=== PATIENT | male | born 1950 | race American Indian/Alaskan Native ===

== ENCOUNTER 2018-02-02 17:40 | Inpatient (IN) | payer BC ==
[2018-02-02] MEDS ORDERED: Multivitamin (MVI) 10 ML, Thiamine 100 MG, Folic Acid 1 MG in Sodium Chloride 0.9% 1,00... IV ONE (18:07)
--- NOTE | 2018-02-02 18:20 | ED PDOC ---
Arrival/HPI - General Chief Complaint: Alcohol Ingestion Time Seen by Provider: 02/02/18 18:03 Historian: Patient, Spouse - History of Present Illness Narrative History of Present Illness (Text): 02/02/18 18:08 67 year old male, whose past medical history includes hypertension, ETOH abuse, and depression, presents to the emergency department complaining of ETOH withdrawal and generalized tremors, that began earlier today. Patient states that he has not taken ETOH in the past two days, and is experiencing associated nausea and vomiting. Of note patient reports he has experienced severe withdrawal symptoms in the past, including seizures. Patient denies fevers, headache, dizziness, chest pain, shortness of breath, dyspnea on exertion, cough, abdominal pain, diarrhea, back pain, neck pain, or any other complaint. Time/Duration: 4-6 hours Symptom Course: Unchanged Activities at Onset: Light Context: Home Past Medical History - Provider Review Nursing Documentation Reviewed: Yes - Infectious Disease Hx of Infectious Diseases: None - Cardiac Hx Cardiac Disorders: Yes Hx Hypertension: Yes - Pulmonary Hx Respiratory Disorders: No - Neurological Hx Neurological Disorder: Yes Hx Seizures: Yes Other/Comment: ALCOHOL WITHDRAWAL - HEENT Hx HEENT Disorder: Yes - Renal Hx Renal Disorder: No - Endocrine/Metabolic Hx Endocrine Disorders: No - Hematological/Oncological Hx Blood Disorders: Yes Hx Cancer: Yes (Prostate) - Integumentary Hx Dermatological Disorder: Yes Other/Comment: LIPOMA SCALP LEFT SIDE - Musculoskeletal/Rheumatological Hx Musculoskeletal Disorders: Yes Hx Falls: Yes - Gastrointestinal Hx Gastrointestinal Disorders: Yes Other/Comment: ALCOHOL ABUSE - Genitourinary/Gynecological Hx Genitourinary Disorders: Yes Hx Prostate Cancer: Yes - Psychiatric Hx Psychophysiologic Disorder: Yes Hx Depression: Yes Hx Substance Use: No - Surgical History Other/Comment: prostate bx prostate seed implant - Anesthesia Hx Anesthesia: Yes Hx Anesthesia Reactions: No Family/Social History - Physician Review Nursing Documentation Reviewed: Yes Family/Social History: No Known Family HX Smoking Status: Never Smoked Hx Alcohol Use: Yes Hx Substance Use: No Allergies/Home Meds Allergies/Adverse Reactions: Allergies No Known Allergies Allergy (Verified 02/02/18 17:42) Review of Systems - Physician Review All systems were reviewed & negative as marked: Yes - Review of Systems Constitutional: Other (generalized tremors). absent: Fevers Eyes: absent: Vision Changes Respiratory: absent: SOB, Cough Cardiovascular: absent: Chest Pain Gastrointestinal: Nausea, Vomiting. absent: Diarrhea Genitourinary Male: absent: Dysuria Musculoskeletal: absent: Back Pain, Neck Pain Neurological: absent: Headache, Dizziness Physical Exam - Physical Exam Narrative Physical Exam (Text): 02/02/18 18:08 Gen: VS reviewed, alert, well developed, well nourished, nontoxic, mild distress, mild to moderate tremors. ENT: normal pharynx. Eye: EOMI, PERRL. Neck: no JVD, supple, no adenopathy. CV: Irregulary irregular rhythm, no rubs, no murmur, no gallops, S1, S2, pulses equal and strong. Pulm: no distress, clear to auscultation, no wheeze, no rhonchi, breath sounds equal, no rales. Abd: soft, nontender, no guarding, no rebound, no rigidity, normal bowel sounds. Ext: no edema. Skin: good color, no rash, no cyanosis. Psych: responds appropriately to questions, normal affect. Neuro: oriented x 3, CN2-12 intact grossly, motor intact, sensation intact. Vital Signs Reviewed: Yes Vital Signs Temp Pulse Resp BP Pulse Ox 02/02/18 17:44 98.1 F 133 H 18 194/123 H 98 Temperature: Afebrile Blood Pressure: Hypertensive Pulse: Tachycardic Respiratory Rate: Normal Appearance: Positive for: Well-Appearing, Non-Toxic, Comfortable Pain Distress: None Mental Status: Positive for: Alert and Oriented X 3 Medical Decision Making ED Course and Treatment: 02/02/18 18:08 Impression: 67 year old male who presents to the emergency department with complaints of ETOH withdrawal and generalized tremors. Plan: -- EKG -- Labs -- Ativan -- Cardiac Enzymes -- IV Fluids -- Reassess and disposition Prior Visits: Notes and results from previous visits were reviewed. Progress Notes: 02/02/18 19:30 CIWA score at initial examination = approx 9 02/02/18 20:48 admit accepted to hospitalist service, dr. dalton, patient to be admitted for alcohol withdrawal and low magnesium. - Lab Interpretations I have reviewed the lab results: Yes - EKG Interpretation EKG Interpretation (Text): 02/02/18 18:35 1819: sinus tach at 116 bpm, nml qrs, nml axis, lhv, nonspecific lateral t wave abn Interpreted by ED Physician: Yes Type: 12 lead EKG - Medication Orders Current Medication Orders: Multivitamins/Vitamin C 10 ml/Thiamine HCl 100 mg/ Folic Acid 1 mg/ Sodium Chloride 1,011.2 mls @ 150 mls/hr IV .[id number] ONE Stop: 02/03/18 00:51 Discontinued Medications Lorazepam (Ativan) 2 mg IVP ONCE ONE; Protocol Stop: 02/02/18 18:09 - Scribe Statement The provider has reviewed the documentation as recorded by the Maggie Zafar Provider Scribe Attestation: All medical record entries made by the Scribe were at my direction and personally dictated by me. I have reviewed the chart and agree that the record accurately reflects my personal performance of the history, physical exam, medical decision making, and the department course for this patient. I have also personally directed, reviewed, and agree with the discharge instructions and disposition. Disposition/Present on Arrival - Present on Arrival Any Indicators Present on Arrival: No History of DVT/PE: No History of Uncontrolled Diabetes: No Urinary Catheter: No History of Decub. Ulcer: No History Surgical Site Infection Following: None - Disposition Have Diagnosis and Disposition been Completed?: Yes Diagnosis: Alcohol withdrawal Disposition: HOSPITALIZED Disposition Time: 20:19 Patient Plan: Admission Patient Problems: Current Active Problems Problem Status Onset Alcohol withdrawal Acute Condition: STABLE Referrals: Toñito Alarcon MD [Primary Care Provider] - Follow up with primary Forms: [employer] (Czech)
[2018-02-02 19:12] LABS: BASO # 0.01 K/mm3 (0.0-2.0); BASO % 0.1 % (0.0-3.0); GRAN # 6.58 (1.4-6.5); GRAN % 84.3 % (50.0-68.0); HEMOGLOBIN 11.3 g/dL (14.0-18.0); LYMPH # 0.3 (1.2-3.4); LYMPH % 3.6 % (22.0-35.0); MEAN CELL VOLUME 101.9 fl (80.0-105.0); MEAN CORPUSCULAR HEMOGLOBIN 35.1 pg (25.0-35.0); MEAN CORPUSCULAR HGB CONC 34.5 g/dl (31.0-37.0); MEAN PLATELET VOLUME 11.2 fl (7.0-11.0); MONO # 0.9 (0.1-0.6); PLATELET COUNT 237 10^3/uL (120.0-450.0); RBC 3.22 10^6/uL (3.5-6.1); RED CELL DISTRIBUTION WIDTH 15.2 % (11.5-14.5); WHITE BLOOD COUNT 7.8 10^3/uL (4.5-11.0)
[2018-02-02 19:38] LABS: ANISOCYTOSIS 1+; HYPOCHROMIA 1+; LYMPHOCYTE 6 % (22.0-35.0); MONOCYTE 9 % (1.0-6.0); NEUTROPHIL 88 % (50.0-70.0); PLATELET ESTIMATE NORMAL (NORMAL)
[2018-02-02 20:32] LABS: BLOOD UREA NITROGEN 11 mg/dL (7-21); GFR NON-AFRICAN AMERICAN > 60
[2018-02-02 20:33] LABS: ALB/GLOB RATIO 1.3 (1.1-1.8); ALBUMIN 4.8 g/dL (3.0-4.8); ALT/SGPT 46 U/L (7-56); AST/SGOT 166 U/L (17-59); CALCIUM 9.6 mg/dL (8.4-10.5)
[2018-02-02 20:44] LABS: TROPONIN I 0.02 ng/mL
[2018-02-02] MEDS ORDERED: Magnesium Sulfate 2 gm/50 ml 2 GM/50 ML BAG IVPB ONE (20:46)
--- NOTE | 2018-02-02 21:59 | CP.PCM.HP ---
<Brendan Stephenson - Last Filed: 02/03/18 00:15> History of Present Illness - History of Present Illness History of Present Illness: Brendan Stephenson PGY1 History and Physical For Dr Dotson. Pt is a 67 yo male with a PMH of HTN, ETOH abuse/withdrawal, depression, prostate cancer s/p radiation treatments who presents to the ED complaining of ETOH withdrawal and generalized tremors, that began earlier today. Pt states he typically drinks about 1/2 pint of vodka each day. Pt last drank alco hol 2 days ago. Pt reports "a little vomiting" yesterday with a small amount of pink which his state may have been something he ate. Pt is oriented to self, place, but states the year is 1917. Patient reports he has experienced severe withdrawal symptoms in the past, including seizures. Pt denies fevers, headache, dizziness, chest pain, shortness of breath, dyspnea on exertion, cough, abdominal pain, diarrhea. A 12 point ROS was obtained and added to the HPI where appropriate. PMH: HTN, ETOH abuse/withdrawal, depression, prostate cancer s/p radiation treatments, tetanus PSH: lipoma removal from forehead FH: Mother 92 living, HTN, DM. Father 89 prostate cancer, CHF SH: Alcohol 1/2 pint vodka per day, Tobacco former smoker, quit in , Denies illicit drugs Home meds: carvedilol Allergies: denies Present on Admission - Present on Admission Any Indicators Present on Admission: No Review of Systems - Review of Systems Review of Systems: a 12 point ROS was obtained and added to the HPI Past Patient History - Infectious Disease Hx of Infectious Diseases: None - Past Medical History & Family History Past Medical History?: Yes - Past Social History Smoking Status: Never Smoked - CARDIAC Hx Cardiac Disorders: Yes Hx Hypertension: Yes - PULMONARY Hx Respiratory Disorders: No - NEUROLOGICAL Hx Neurological Disorder: Yes Hx Seizures: Yes Other/Comment: ALCOHOL WITHDRAWAL - HEENT Hx HEENT Problems: Yes - RENAL Hx Chronic Kidney Disease: No - ENDOCRINE/METABOLIC Hx Endocrine Disorders: No - HEMATOLOGICAL/ONCOLOGICAL Hx Blood Disorders: Yes Hx Cancer: Yes (Prostate) - INTEGUMENTARY Hx Dermatological Problems: Yes Other/Comment: LIPOMA SCALP LEFT SIDE - MUSCULOSKELETAL/RHEUMATOLOGICAL Hx Musculoskeletal Disorders: Yes Hx Falls: Yes - GASTROINTESTINAL Hx Gastrointestinal Disorders: Yes Other/Comment: ALCOHOL ABUSE - GENITOURINARY/GYNECOLOGICAL Hx Genitourinary Disorders: Yes Hx Prostate Cancer: Yes - PSYCHIATRIC Hx Psychophysiologic Disorder: Yes Hx Depression: Yes Hx Substance Use: No - SURGICAL HISTORY Other/Comment: prostate bx prostate seed implant - ANESTHESIA Hx Anesthesia: Yes Hx Anesthesia Reactions: No Meds Allergies/Adverse Reactions: Allergies Allergy/AdvReac Type Severity Reaction Status Date / Time No Known Allergies Allergy Verified 02/02/18 17:42 Physical Exam - Constitutional Appears: Non-toxic, No Acute Distress - Head Exam Head Exam: ATRAUMATIC, NORMAL INSPECTION, NORMOCEPHALIC - Eye Exam Eye Exam: EOMI Pupil Exam: NORMAL ACCOMODATION - ENT Exam ENT Exam: Mucous Membranes Moist - Neck Exam Neck exam: Positive for: Full Rom - Respiratory Exam Respiratory Exam: Clear to Auscultation Bilateral, NORMAL BREATHING PATTERN. absent: Wheezes, Respiratory Distress - Cardiovascular Exam Cardiovascular Exam: RRR, +S1, +S2. absent: Diastolic murmur, Systolic Murmur - GI/Abdominal Exam GI & Abdominal Exam: Normal Bowel Sounds, Soft. absent: Tenderness - Extremities Exam Extremities exam: Positive for: full ROM, pedal pulses present. Negative for: calf tenderness, pedal edema - Neurological Exam Neurological exam: CN II-XII Intact - Psychiatric Exam Psychiatric exam: Normal Affect, Normal Mood - Skin Skin Exam: Dry, Intact, Warm Results - Vital Signs Recent Vital Signs: Last Vital Signs Temp 98.2 F 02/02/18 21:33 Pulse 106 H 02/02/18 21:33 Resp 19 02/02/18 21:33 BP 155/108 H 02/02/18 21:33 Pulse Ox 100 02/02/18 21:33 - Labs Result Diagrams: 02/02/18 18:18 02/02/18 20:06 Labs: Laboratory Results - last 24 hr 02/02/18 02/02/18 02/02/18 18:18 18:18 20:06 WBC 7.8 RBC 3.22 L Hgb 11.3 L Hct 32.8 L MCV 101.9 MCH 35.1 H MCHC 34.5 RDW 15.2 H Plt Count 237 MPV 11.2 H Gran % 84.3 H Lymph % (Auto) 3.6 L [place] % (Auto) 12.0 H Eos % (Auto) 0.0 L Baso % (Auto) 0.1 Gran # 6.58 H Lymph # (Auto) 0.3 L [place] # (Auto) 0.9 H Eos # (Auto) 0.0 Baso # (Auto) 0.01 Neutrophils % (Manual) 88 H Lymphocytes % (Manual) 6 L Monocytes % (Manual) 9 H Platelet Evaluation Normal Hypochromasia 1+ Anisocytosis (manual) 1+ Macrocytosis (manual) 1+ Sodium 138 Potassium 4.2 Chloride 97 L Carbon Dioxide 22 Anion Gap 24 H BUN 11 Creatinine 0.7 L Est GFR ( Amer) > 60 Est GFR (Non-Af Amer) > 60 Random Glucose 94 Calcium 9.6 Magnesium 1.1 L Total Bilirubin 0.8 AST 166 H ALT 46 Alkaline Phosphatase 95 Troponin I 0.02 D Total Protein 8.6 H Albumin 4.8 Globulin 3.8 Albumin/Globulin Ratio 1.3 Alcohol, Quantitative < 10 Assessment & Plan - Assessment and Plan (Free Text) Assessment: Pt is a 67 yo male with a PMH of HTN, ETOH abuse/withdrawal, depression, prostate cancer s/p radiation treatments who presents to the ED complaining of ETOH withdrawal and generalized tremors, that began earlier today. Pt states he typically drinks about 1/2 pint of vodka each day. Plan: ETOH abuse/ withdrawal - pt has had seizure like activity from withdrawal in the past - CIWA protocol - fall and seizure precautions - Ativan given in the ED - pt given Banana bag in ED - monitor for signs of withdrawal/ seizure - continue to monitor electrolytes HypoMg - repeat Mg level in the morning - continue to replete PRN HTN - hydralazine PRN Ppx - SCD - protonix Pt seen, examined, assessment and plan discussed with Dr Mauri Stephenson PGY1, Internal Medicine Resident - Date & Time Date: 02/02/18 Time: 22:02 <Jose Miguel Dotson - Last Filed: 02/03/18 02:32> Results - Vital Signs Recent Vital Signs: Last Vital Signs Temp 97.8 F 02/03/18 00:25 Pulse 94 H 02/03/18 00:27 Resp 16 02/03/18 00:25 BP 127/86 02/03/18 00:25 Pulse Ox 99 02/03/18 00:25 - Labs Result Diagrams: 02/02/18 18:18 02/02/18 20:06 Labs: Laboratory Results - last 24 hr 02/02/18 02/02/18 02/02/18 18:18 18:18 20:06 WBC 7.8 RBC 3.22 L Hgb 11.3 L Hct 32.8 L MCV 101.9 MCH 35.1 H MCHC 34.5 RDW 15.2 H Plt Count 237 MPV 11.2 H Gran % 84.3 H Lymph % (Auto) 3.6 L [place] % (Auto) 12.0 H Eos % (Auto) 0.0 L Baso % (Auto) 0.1 Gran # 6.58 H Lymph # (Auto) 0.3 L [place] # (Auto) 0.9 H Eos # (Auto) 0.0 Baso # (Auto) 0.01 Neutrophils % (Manual) 88 H Lymphocytes % (Manual) 6 L Monocytes % (Manual) 9 H Platelet Evaluation Normal Hypochromasia 1+ Anisocytosis (manual) 1+ Macrocytosis (manual) 1+ Sodium 138 Potassium 4.2 Chloride 97 L Carbon Dioxide 22 Anion Gap 24 H BUN 11 Creatinine 0.7 L Est GFR ( Amer) > 60 Est GFR (Non-Af Amer) > 60 Random Glucose 94 Calcium 9.6 Magnesium 1.1 L Total Bilirubin 0.8 AST 166 H ALT 46 Alkaline Phosphatase 95 Troponin I 0.02 D Total Protein 8.6 H Albumin 4.8 Globulin 3.8 Albumin/Globulin Ratio 1.3 Alcohol, Quantitative < 10 Attending/Attestation - Attestation I have personally seen and examined this patient.: Yes I have fully participated in the care of the patient.: Yes I have reviewed all pertinent clinical information: Yes Notes (Text): 02/03/18 02:24 67 y/o M with PMH of prostate CA s/p radiotherapy, EtOH abuse, presented with withdrawal symptoms. Last drink was 2days ago. Denies any chest pain, SOB. Pt currently has NB/NB vomiting. Denies any fever or chills. PE positive for tremors and tachycardia EtOH abuse EtOH withdrawal HTN Hypomagnesemia Initiate CIWA protocol fall and seizure precautions Start pt on banana bag Monitor and replace electrolytes
[2018-02-03 01:00] VITALS: BMI 20.9
[2018-02-03] MEDS: Pantoprazole 40 mg EC Tab PO SCH (05:54)
[2018-02-03 07:07] LABS: BASO # 0.01 K/mm3 (0.0-2.0); BASO % 0.2 % (0.0-3.0); EOS % 0.7 % (1.5-5.0); GRAN # 3.67 (1.4-6.5); GRAN % 64.6 % (50.0-68.0); HEMOGLOBIN 10.2 g/dL (14.0-18.0); LYMPH % 17.4 % (22.0-35.0); MEAN CORPUSCULAR HEMOGLOBIN 34.5 pg (25.0-35.0); MEAN CORPUSCULAR HGB CONC 34.1 g/dl (31.0-37.0); MONO % 17.1 % (1.0-6.0); RBC 2.96 10^6/uL (3.5-6.1); WHITE BLOOD COUNT 5.7 10^3/uL (4.5-11.0)
[2018-02-03] MEDS ORDERED: Multivitamin (MVI) 10 ML, Thiamine 100 MG, Folic Acid 1 MG in Sodium Chloride 0.9% 1,00... IV ONE (07:25)
[2018-02-03 07:33] LABS: ALB/GLOB RATIO 1.3 (1.1-1.8); ALBUMIN 4.7 g/dL (3.0-4.8); ALT/SGPT 43 U/L (7-56); AST/SGOT 151 U/L (17-59); BLOOD UREA NITROGEN 9 mg/dL (7-21); CALCIUM 9.1 mg/dL (8.4-10.5); GFR NON-AFRICAN AMERICAN > 60
--- NOTE | 2018-02-03 10:11 | CARD ---
APPROVED REPORT Date of service: 02/02/2018 EKG Measurement Heart [id number] <Conclusion> Sinus tachycardia with premature atrial complexes LVH ST-T Changes.
[2018-02-03] MEDS ORDERED: Potassium Chloride 20 mEq ER Tab PO STA (11:55)
[2018-02-03] MEDS ORDERED: Magnesium Sulfate 2 gm/50 ml 2 GM/50 ML BAG IVPB ONE (11:55)
[2018-02-04] MEDS: Pantoprazole 40 mg EC Tab PO SCH (05:58)
[2018-02-04 08:02] LABS: BASO # 0.01 K/mm3 (0.0-2.0); BASO % 0.2 % (0.0-3.0); EOS # 0.1 (0.0-0.7); EOS % 1.8 % (1.5-5.0); GRAN # 3.89 (1.4-6.5); GRAN % 68.4 % (50.0-68.0); HEMOGLOBIN 10.1 g/dL (14.0-18.0); LYMPH # 0.8 (1.2-3.4); LYMPH % 13.9 % (22.0-35.0); MEAN CELL VOLUME 101.3 fl (80.0-105.0); MEAN CORPUSCULAR HGB CONC 33.6 g/dl (31.0-37.0); MEAN PLATELET VOLUME 10.2 fl (7.0-11.0); MONO # 0.9 (0.1-0.6); MONO % 15.7 % (1.0-6.0); RBC 2.97 10^6/uL (3.5-6.1); WHITE BLOOD COUNT 5.7 10^3/uL (4.5-11.0)
[2018-02-04 08:17] LABS: ALB/GLOB RATIO 1.2 (1.1-1.8); ALT/SGPT 40 U/L (7-56); AST/SGOT 104 U/L (17-59); BLOOD UREA NITROGEN 12 mg/dL (7-21); GFR NON-AFRICAN AMERICAN > 60
--- NOTE | 2018-02-04 13:19 | PCM.FALL ---
<Tacos Castrocarrie - Last Filed: 02/04/18 13:13> Post Fall Progress Note - Post Fall Fall Date: 02/04/18 Fall Time: 01:50 Description of Fall: Patient was using the bathroom with the help of nurse and as patient was getting up from the toilet he lost his balance and fell backwards. Nurse was present and provided support to patient by preventing any fall and patient was able to slide back down onto the toilet. There was no traumatic fall, acute impact or head/neck trauma. Patient states he has no complaints at this time from the event and denies any tenderness to the head, neck, back, legs or pelvic area. He also denies CP, SOB, urinary complaints, numbness, tingling and swelling. - Post Fall Exam Vital Sign: Temp Pulse Resp BP Pulse Ox 97.5 F L 90 19 123/78 98 02/04/18 06:00 02/04/18 10:18 02/04/18 06:00 02/04/18 10:18 02/04/18 06:00 Skull Exam: Negative for: Scalp wound, Scalp hematoma Eye Exam: Positive for: Pupils equal Ear Exam: Negative for: Bleeding Nose Exam: Negative for: Bleeding Skin Exam: Negative for: Lacerations Mouth Exam: Negative for: Tongue bitten, Teeth dislodge Neck Exam: Negative for: Tenderness, Tingling, Weakness Spinal Exam: Negative for: Tenderness, Tingling, Weakness Chest Exam: Negative for: Difficulty breathing Abdomen Exam: Negative for: Tenderness Pelvic Exam: Negative for: Tenderness Arm Exam: Negative for: Deformity Leg Exam: Negative for: Deformity Impression/Plan: Due to non traumatic event, stability of patient and no complaints from patient, there is no concern for acute injury at this time. Please continue to medically treat patient as per medical care team. <Tenisha Melendez - Last Filed: 02/05/18 13:25> Post Fall Progress Note - Post Fall Exam Vital Sign: Temp Pulse Resp BP Pulse Ox 98.4 F 78 18 123/86 98 02/05/18 12:00 02/05/18 12:00 02/05/18 12:00 02/05/18 12:00 02/05/18 06:00 Attending/Attestation - Attestation I have personally seen and examined this patient.: Yes I have fully participated in the care of the patient.: Yes I have reviewed all pertinent clinical information, including history, physical exam and plan: Yes Notes (Text): Patient seen and examined by me with resident at 1:52PM on 02/04/18. Case including HPI, physical exam, and assessment and plan discussed with resident. Agree with above with following additions/corrections. Called at 1:50 PM for fall. Patient was using the restroom. Patient stood up and lost balance. Nurse was with patient. Patient was helped back onto toliet. No trauma. Patient denies any pain. No loss of consciousness. Paitent helped back to bed with no issues. Continue to maintain fall precautions. PT eval and treat.
--- NOTE | 2018-02-04 13:52 | CP.PCM.PN ---
<Jose Castro - Last Filed: 02/04/18 13:53> Subjective - Date & Time of Evaluation Date of Evaluation: 02/04/18 Time of Evaluation: 09:00 - Subjective Subjective: Jose Castro PGY1 Medicine Progress Note Patient seen and examined at bedside this morning. No acute events reported overnight. Offers no complaints at time of examination. Code star called in the afternoon for non traumatic event while using the bathroom with the help of nurse. No bodily injury or impact report as nurse was able to help patient. He ensorses nausea and diarrhea. Denies CP, SOB, fevers, tremors, urinary complaints, numbness, tingling, and headaches. Objective - Vital Signs/Intake and Output Vital Signs (last 24 hours): Temp Pulse Resp BP Pulse Ox 97.5 F L 90 19 123/78 98 02/04/18 06:00 02/04/18 10:18 02/04/18 06:00 02/04/18 10:18 02/04/18 06:00 Intake and Output: 02/04/18 02/04/18 06:59 18:59 Intake Total 0 Balance 0 - Medications Medications: Current Medications Carvedilol (Coreg) 25 mg PO BID ON LICENSE OF [facility] Last Admin: 02/04/18 10:18 Dose: 25 mg Folic Acid (Folic Acid) 1 mg PO DAILY ON LICENSE OF [facility] Last Admin: 02/04/18:18 Dose: 1 mg Sodium Chloride (Sodium Chloride 0.9%) 1,000 mls @ 100 mls/hr IV .Q10H [facility] Lorazepam (Ativan) 1 mg IVP Q4 PRN; Protocol PRN Reason: Symptoms of alcohol withdrawl Multivitamins (Thera Tab) 1 tab PO 0800 ON LICENSE OF [facility] Ondansetron HCl (Zofran Inj) 4 mg IVP Q6H PRN PRN Reason: Nausea/Vomiting Pantoprazole Sodium (Protonix Ec Tab) 40 mg PO 0600 ON LICENSE OF [facility] Last Admin: 02/04/18 05:58 Dose: Not Given Sertraline HCl (Zoloft) 25 mg PO DAILY ON LICENSE OF [facility] Last Admin: 02/04/18 10:18 Dose: 25 mg Thiamine HCl (Vitamin B1 Tab) 100 mg PO DAILY ON LICENSE OF [facility] Last Admin: 02/04/18 10:18 Dose: 100 mg - Labs Labs: 02/04/18 07:00 02/04/18 07:00 - Constitutional Appears: No Acute Distress, Cachectic - Head Exam Head Exam: ATRAUMATIC, NORMAL INSPECTION - Eye Exam Eye Exam: EOMI Pupil Exam: PERRL - ENT Exam ENT Exam: Mucous Membranes Moist - Respiratory Exam Respiratory Exam: Clear to Ausculation Bilateral. absent: Accessory Muscle Use, Respiratory Distress - Cardiovascular Exam Cardiovascular Exam: REGULAR RHYTHM, +S1, +S2 - GI/Abdominal Exam GI & Abdominal Exam: Soft, Normal Bowel Sounds. absent: Guarding, Rigid - Extremities Exam Extremities Exam: Normal Inspection. absent: Calf Tenderness - Neurological Exam Neurological Exam: Alert, Awake, Oriented x3 - Skin Skin Exam: Normal Color, Warm Assessment and Plan - Assessment and Plan (Free Text) Assessment: This is a 67 yo male with a PMH of HTN, ETOH abuse/withdrawal, depression, prostate cancer s/p radiation treatments who presents to the ED complaining of ETOH withdrawal and generalized tremors, that began earlier today. Pt states he typically drinks about 1/2 pint of vodka each day. Plan: Alcohol abuse -history of alcohol withdrawel/seizures -CIWA score is 6 today correlating with a low risk of withdrawel/seizure -fall/seizure/aspiration precautions -Ativan 1mg IVP q4 prn for seizures -NS @ 100cc - continue to monitor electrolytes -folic acid, thiamine, multivitamin -zofran prn for nausea Hypomagnesia -repleted, currently WNL Hypokalemia -repleted, currently WNL HTN -coreg 25mg BID PPX with SCD and protonix Patient seen and examined with attending, Dr. Tenisha Melendez <Tenisha Melendez R - Last Filed: 02/05/18 13:07> Objective - Vital Signs/Intake and Output Vital Signs (last 24 hours): Temp Pulse Resp BP Pulse Ox 98.4 F 78 18 123/86 98 02/05/18 12:00 02/05/18 12:00 02/05/18 12:00 02/05/18 12:00 02/05/18 06:00 Intake and Output: 02/05/18 02/05/18 06:59 18:59 Intake Total 1980 Output Total 200 Balance 1780 - Medications Medications: Current Medications Carvedilol (Coreg) 25 mg PO BID [facility] Last Admin: 02/05/18 09:03 Dose: 25 mg Folic Acid (Folic Acid) 1 mg PO DAILY ON LICENSE OF [facility] Last Admin: 02/05/18 09:05 Dose: 1 mg Sodium Chloride (Sodium Chloride 0.9%) 1,000 mls @ 100 mls/hr IV .Q10H ON LICENSE OF [facility] Last Admin: 02/05/18 12:37 Dose: 100 mls/hr Lorazepam (Ativan) 1 mg IVP Q4 PRN; Protocol PRN Reason: Symptoms of alcohol withdrawl Multivitamins (Thera Tab) 1 tab PO 0800 ON [facility] Last Admin: 02/05/18 09:02 Dose: 1 tab Ondansetron HCl (Zofran Inj) 4 mg IVP Q6H PRN PRN Reason: Nausea/Vomiting Pantoprazole Sodium (Protonix Ec Tab) 40 mg PO 0600 ON LICENSE OF [facility] Last Admin: 02/05/18 05:47 Dose: 40 mg Sertraline HCl (Zoloft) 25 mg PO DAILY ON LICENSE OF [facility] Last Admin: 02/05/18 09:05 Dose: 25 mg Thiamine HCl (Vitamin B1 Tab) 100 mg PO DAILY ON LICENSE OF [facility] Last Admin: 02/05/18 09:05 Dose: 100 mg - Labs Labs: 02/05/18 07:00 02/05/18 07:00 Attending/Attestation - Attestation I have personally seen and examined this patient.: Yes I have fully participated in the care of the patient.: Yes I have reviewed all pertinent clinical information, including history, physical exam and plan: Yes Notes (Text): Patient seen and examined by me with resident at 8:40AM on 02/04/18. Case including HPI, physical exam, and assessment and plan discussed with resident. Agree with above with following additions/corrections. Patient is a 67-year-old male with past medical history significant for retention, alcohol abuse/withdrawal, depression, and prostate cancer status post radiation that presented to the emergency room with alcohol withdrawal and generalized tremors. Patient states he is feeling ok. Patient feels tired. Per nurse, patient agitated over night. Patient is having some diarrhea. Patient denies chest pain or palpitations. No headaches or dizziness. No dysuria.No fevers or chills. No nausea, vomiting, or abdominal pain. Physical exam: General: Sleepy lying in bed in no acute distress HEENT: Normocephalic, atraumatic. Extraocular muscles intact, pupils equal and reactive, no scleral icterus. Oropharynx is pink and moist. Neck is supple. Cardiovascular: Regular rhythm. Normal S1 and S2. No murmurs, rubs, or gallops appreciated Pulmonary: Normal respiratory effort. No rhonchi, rales, or wheezing appreciated. Gastrointestinal: Soft. Nondistended. Nontender. Positive bowel sounds all 4 quadrants. No guarding. Musculoskeletal: Moves all extremities. No calf tenderness. No CVA tenderness. No edema appreciated. Central nervous system: AAO x3, CN 2-12 grossly intact. Dermatologic: Skin warm and dry. Assessment and plan: Patient is a 67-year-old male with past medical history significant for retention, alcohol abuse/withdrawal, depression, and prostate cancer status post radiation that presented to the emergency room with alcohol withdrawal and generalized tremors. 1. ETOH abuse/withdrawal. Continue CIWA protocol. Continue thiamine, folic acid, MVI. Continue ativan as needed. Fall precautions. Monitor for withdrawal symptoms. Patient counseled at length on alcohol cessation. 2. Hypomagnesemia. Replete magnesium. Follow up repeat labs in AM 3. Hypokalemia. Replete potassium. Follow up repeat labs in AM 4. Hypertension. Continue home Coreg with hold parameters 5. Depression. Continue home Zoloft 6. Diarrhea. Likely secondary to alcohol withdrawal. Continue IV fluids. Monitor for improvement 7. GI/DVT prophylaxis. Protonix/SCDs Case was discussed in detail with the patient regarding current diagnosis and treatment plan. All questions answered.
[2018-02-04] MEDS: Sodium Chloride 0.9% 1,000 ML IV SCH (14:19)
[2018-02-05] MEDS: Sodium Chloride 0.9% 1,000 ML IV SCH ×3 (00:34→19:45)
[2018-02-05] MEDS: Pantoprazole 40 mg EC Tab PO SCH (05:47)
[2018-02-05 07:38] LABS: BASO # 0.01 K/mm3 (0.0-2.0); BASO % 0.2 % (0.0-3.0); EOS # 0.2 (0.0-0.7); EOS % 2.6 % (1.5-5.0); GRAN # 3.38 (1.4-6.5); GRAN % 58.9 % (50.0-68.0); HEMOGLOBIN 9.6 g/dL (14.0-18.0); LYMPH # 0.9 (1.2-3.4); MEAN CELL VOLUME 101.4 fl (80.0-105.0); MEAN CORPUSCULAR HEMOGLOBIN 34.7 pg (25.0-35.0); MEAN CORPUSCULAR HGB CONC 34.2 g/dl (31.0-37.0); MEAN PLATELET VOLUME 10.7 fl (7.0-11.0); MONO # 1.3 (0.1-0.6); MONO % 23.3 % (1.0-6.0); RBC 2.77 10^6/uL (3.5-6.1); RED CELL DISTRIBUTION WIDTH 15.1 % (11.5-14.5); WHITE BLOOD COUNT 5.7 10^3/uL (4.5-11.0)
[2018-02-05 07:45] LABS: ALB/GLOB RATIO 1.2 (1.1-1.8); ALT/SGPT 37 U/L (7-56); AST/SGOT 97 U/L (17-59); BLOOD UREA NITROGEN 13 mg/dL (7-21); GFR NON-AFRICAN AMERICAN > 60
[2018-02-05] MEDS ORDERED: Magnesium Sulfate 1 gm in D5W 1 GM/100 ML BAG IVPB ONE (08:30)
[2018-02-05] MEDS ORDERED: Potassium Chloride 20 mEq ER Tab PO STA (08:30)
[2018-02-05] MEDS: Multivitamin Therapeutic Tab PO SCH (09:02)
--- NOTE | 2018-02-05 11:04 | CP.PCM.PN ---
<Jose Castro - Last Filed: 02/05/18 10:54> Subjective - Date & Time of Evaluation Date of Evaluation: 02/05/18 Time of Evaluation: 08:30 - Subjective Subjective: Jose Castro PGY1 Medicine Progress Note Patient seen and examined at bedside this morning. No acute events reported overnight. Offers no complaints at time of examination. S/p code star yesterday for non traumatic fall while using bathroom. Per nurse, stool is more formed today. Denies CP, SOB, fevers, tremors, urinary complaints, numbness, tingling, and headaches. Objective - Vital Signs/Intake and Output Vital Signs (last 24 hours): Temp Pulse Resp BP Pulse Ox 98.4 F 90 20 134/94 H 98 02/05/18 06:00 02/05/18 09:03 02/05/18 06:00 02/05/18 09:03 02/05/18 06:00 Intake and Output: 02/05/18 02/05/18 06:59 18:59 Intake Total 1980 Output Total 200 Balance 1780 - Medications Medications: Current Medications Carvedilol (Coreg) 25 mg PO BID [facility] Last Admin: 02/05/18 09:03 Dose: 25 mg Folic Acid (Folic Acid) 1 mg PO DAILY [facility] Last Admin: 02/05/18 09:05 Dose: 1 mg Sodium Chloride (Sodium Chloride 0.9%) 1,000 mls @ 100 mls/hr IV .Q10H [facility] Last Admin: 02/05/18 00:34 Dose: 100 mls/hr Lorazepam (Ativan) 1 mg IVP Q4 PRN; Protocol PRN Reason: Symptoms of alcohol withdrawl Multivitamins (Thera Tab) 1 tab PO 0800 [facility] Last Admin: 02/05/18 09:02 Dose: 1 tab Ondansetron HCl (Zofran Inj) 4 mg IVP Q6H PRN PRN Reason: Nausea/Vomiting Pantoprazole Sodium (Protonix Ec Tab) 40 mg PO 0600 [facility] Last Admin: 02/05/18 05:47 Dose: 40 mg Sertraline HCl (Zoloft) 25 mg PO DAILY [facility] Last Admin: 02/05/18 09:05 Dose: 25 mg Thiamine HCl (Vitamin B1 Tab) 100 mg PO DAILY [facility] Last Admin: 02/05/18 09:05 Dose: 100 mg - Labs Labs: 02/05/18 07:00 02/05/18 07:00 - Additional Findings Additional findings: - Constitutional Appears: No Acute Distress, Cachectic - Head Exam Head Exam: ATRAUMATIC, NORMAL INSPECTION - Eye Exam Eye Exam: EOMI Pupil Exam: PERRL - ENT Exam ENT Exam: Mucous Membranes Moist - Respiratory Exam Respiratory Exam: Clear to Ausculation Bilateral. absent: Accessory Muscle Use, Respiratory Distress - Cardiovascular Exam Cardiovascular Exam: REGULAR RHYTHM, +S1, +S2 - GI/Abdominal Exam GI & Abdominal Exam: Soft, Normal Bowel Sounds, non tender. absent: Guarding, Rigid - Extremities Exam Extremities Exam: Normal Inspection. Minimal tremors appreciated when patient extends his arms. absent: Calf Tenderness - Neurological Exam Neurological Exam: Alert, Awake, Oriented x3 - Skin Skin Exam: Normal Color, Warm Assessment and Plan - Assessment and Plan (Free Text) Assessment: This is a 67 yo male with a PMH of HTN, ETOH abuse/withdrawal, depression, prostate cancer s/p radiation treatments who presents to the ED complaining of ETOH withdrawal and generalized tremors, that began earlier today. Pt states he typically drinks about 1/2 pint of vodka each day. Plan: Alcohol abuse -history of alcohol withdrawal/seizures -CIWA score is 0 today, low risk of withdrawel/seizure -fall/seizure/aspiration precautions in plae -Ativan 1mg IVP q4 prn for seizures, no ativan given over last day. Continue to monitor for withdrawal/seizure -NS @ 100cc - continue to monitor electrolytes -folic acid, thiamine, multivitamin -zofran prn for nausea Hypomagnesia -low today, repleted -f/u AM labs Hypokalemia -low today, repleted -f/u AM labs HTN -continue coreg 25mg BID PPX with SCD and protonix Patient seen and examined with attending, Dr. Tenisha Melendez <Tenisha Melendez R - Last Filed: 02/05/18 14:57> Objective - Vital Signs/Intake and Output Vital Signs (last 24 hours): Temp Pulse Resp BP Pulse Ox 98.4 F 78 18 123/86 98 02/05/18 12:00 02/05/18 12:00 02/05/18 12:00 02/05/18 12:00 02/05/18 06:00 Intake and Output: 02/05/18 02/05/18 06:59 18:59 Intake Total 1980 Output Total 200 Balance 1780 - Medications Medications: Current Medications Carvedilol (Coreg) 25 mg PO BID [facility] Last Admin: 02/05/18 09:03 Dose: 25 mg Folic Acid (Folic Acid) 1 mg PO DAILY [facility] Last Admin: 02/05/18 09:05 Dose: 1 mg Sodium Chloride (Sodium Chloride 0.9%) 1,000 mls @ 100 mls/hr IV .Q10H [facility] Last Admin: 02/05/18 12:37 Dose: 100 mls/hr Lorazepam (Ativan) 1 mg IVP Q4 PRN; Protocol PRN Reason: Symptoms of alcohol withdrawl Multivitamins (Thera Tab) 1 tab PO 0800 [facility] Last Admin: 02/05/18 09:02 Dose: 1 tab Ondansetron HCl (Zofran Inj) 4 mg IVP Q6H PRN PRN Reason: Nausea/Vomiting Pantoprazole Sodium (Protonix Ec Tab) 40 mg PO 0600 [facility] Last Admin: 02/05/18 05:47 Dose: 40 mg Sertraline HCl (Zoloft) 25 mg PO DAILY [facility] Last Admin: 02/05/18 09:05 Dose: 25 mg Thiamine HCl (Vitamin B1 Tab) 100 mg PO DAILY [facility] Last Admin: 02/05/18 09:05 Dose: 100 mg - Labs Labs: 02/05/18 07:00 02/05/18 07:00 Attending/Attestation - Attestation I have personally seen and examined this patient.: Yes I have fully participated in the care of the patient.: Yes I have reviewed all pertinent clinical information, including history, physical exam and plan: Yes Notes (Text): Patient seen and examined by me with resident at 8:30AM on 02/05/18. Case including HPI, physical exam, and assessment and plan discussed with resident. Agree with above with following additions/corrections. Patient is a 67-year-old male with past medical history significant for retention, alcohol abuse/withdrawal, depression, and prostate cancer status post radiation that presented to the emergency room with alcohol withdrawal and generalized tremors. Patient states he is feeling better today. Less tremulous. Stool is more formed. Patient denies chest pain or palpitations. No headaches or dizziness. No dysuria.No fevers or chills. No nausea, vomiting, or abdominal pain. Physical exam: General: Awake and alert lying in bed in no acute distress HEENT: Normocephalic, atraumatic. Extraocular muscles intact, pupils equal and reactive, no scleral icterus. Oropharynx is pink and moist. Neck is supple. Cardiovascular: Regular rhythm. Normal S1 and S2. No murmurs, rubs, or gallops appreciated Pulmonary: Normal respiratory effort. No rhonchi, rales, or wheezing appreciated. Gastrointestinal: Soft. Nondistended. Nontender. Positive bowel sounds all 4 quadrants. No guarding. Musculoskeletal: Moves all extremities. No calf tenderness. No CVA tenderness. No edema appreciated. Central nervous system: AAO x3, CN 2-12 grossly intact. Dermatologic: Skin warm and dry. Assessment and plan: Patient is a 67-year-old male with past medical history significant for retention, alcohol abuse/withdrawal, depression, and prostate cancer status post radiation that presented to the emergency room with alcohol withdrawal and generalized tremors. 1. ETOH abuse/withdrawal. Continue CIWA protocol. Continue thiamine, folic acid, MVI. Continue ativan as needed. Patient did not require any overnight. CIWA today is 0. Continue all precautions. Continue to monitor for withdrawal symptoms. Patient counseled at length on tobacco cessation. 2. Pre-fall. Patient was with nurse in bathroom yesterday when patient lost balance. PT consulted, follow up recommendations. Not a safe discharge without PT recommendations as patient is high fall risk. 3. Hypomagnesemia. Replete magnesium. Follow up repeat labs in AM 4. Hypokalemia. Replete potassium. Follow up repeat labs in AM 5. Hypertension. Continue home Coreg with hold parameters 6. Depression. Continue home Zoloft 7. Diarrhea. Likely secondary to alcohol withdrawal. Improved. Continue IV fluids. Continue to monitor for improvement 8. GI/DVT prophylaxis. Protonix/SCDs Case was discussed in detail with the patient regarding current diagnosis and treatment plan. All questions answered.
[2018-02-06 01:10] VITALS: O2SAT 99
[2018-02-06] MEDS: Pantoprazole 40 mg EC Tab PO SCH (05:17)
[2018-02-06] MEDS: Sodium Chloride 0.9% 1,000 ML IV SCH (05:18)
[2018-02-06 07:01] LABS: BASO # 0.01 K/mm3 (0.0-2.0); BASO % 0.2 % (0.0-3.0); EOS # 0.2 (0.0-0.7); EOS % 2.9 % (1.5-5.0); GRAN # 3.03 (1.4-6.5); GRAN % 54.9 % (50.0-68.0); HEMOGLOBIN 9.2 g/dL (14.0-18.0); LYMPH # 1.1 (1.2-3.4); LYMPH % 19.9 % (22.0-35.0); MEAN CELL VOLUME 101.9 fl (80.0-105.0); MEAN CORPUSCULAR HEMOGLOBIN 34.3 pg (25.0-35.0); MEAN CORPUSCULAR HGB CONC 33.7 g/dl (31.0-37.0); MEAN PLATELET VOLUME 10.6 fl (7.0-11.0); MONO # 1.2 (0.1-0.6); MONO % 22.1 % (1.0-6.0); PLATELET COUNT 217 10^3/uL (120.0-450.0); RBC 2.68 10^6/uL (3.5-6.1); WHITE BLOOD COUNT 5.5 10^3/uL (4.5-11.0)
[2018-02-06] MEDS ORDERED: Potassium Chloride 20 mEq ER Tab PO STA (07:25)
[2018-02-06 07:54] LABS: ALB/GLOB RATIO 1.1 (1.1-1.8); ALBUMIN 3.7 g/dL (3.0-4.8); ALT/SGPT 33 U/L (7-56); AST/SGOT 72 U/L (17-59); BLOOD UREA NITROGEN 8 mg/dL (7-21); CALCIUM 9.2 mg/dL (8.4-10.5); GFR NON-AFRICAN AMERICAN > 60
[2018-02-06] MEDS: Multivitamin Therapeutic Tab PO SCH (08:44)
[2018-02-06 08:48] LABS: BASOPHIL 1 % (0.0-1.0); EOSINOPHIL 4 % (0.0-3.0); LYMPHOCYTE 16 % (22.0-35.0); MONOCYTE 25 % (1.0-6.0); NEUTROPHIL 54 % (50.0-70.0); PLATELET ESTIMATE NORMAL (NORMAL)
[2018-02-06] MEDS ORDERED: Magnesium Sulfate 2 gm/50 ml 2 GM/50 ML BAG IVPB ONE (09:28)
[2018-02-06 12:01] VITALS: BP 118/86; RESP 20; TEMP 98
[2018-02-06 15:30] VITALS: PULSE 82
--- NOTE | 2018-02-06 17:56 | CP.PCM.DIS ---
<Jose Castro - Last Filed: 02/06/18 17:53> Provider - Provider Date of Admission: 02/02/18 20:47 Attending physician: Tenisha Melendez DO Primary care physician: Toñito Alarcon MD Time Spent in preparation of Discharge (in minutes): 35 Hospital Course - Lab Results Lab Results: Most Recent Lab Values WBC 5.5 10^3/uL (4.5-11.0) 02/06/18 06:00 RBC 2.68 10^6/uL (3.5-6.1) L 02/06/18 06:00 Hgb 9.2 g/dL (14.0-18.0) L 02/06/18 06:00 Hct 27.3 % (42.0-52.0) L 02/06/18 06:00 MCV 101.9 fl (80.0-105.0) 02/06/18 06:00 MCH 34.3 pg (25.0-35.0) 02/06/18 06:00 MCHC 33.7 g/dl (31.0-37.0) 02/06/18 06:00 RDW 15.0 % (11.5-14.5) H 02/06/18 06:00 Plt Count 217 10^3/uL (120.0-450.0) 02/06/18 06:00 MPV 10.6 fl (7.0-11.0) 02/06/18 06:00 Gran % 54.9 % (50.0-68.0) 02/06/18 06:00 Lymph % (Auto) 19.9 % (22.0-35.0) L 02/06/18 06:00 [place] % (Auto) 22.1 % (1.0-6.0) H 02/06/18 06:00 Eos % (Auto) 2.9 % (1.5-5.0) 02/06/18 06:00 Baso % (Auto) 0.2 % (0.0-3.0) 02/06/18 06:00 Gran # 3.03 (1.4-6.5) 02/06/18 06:00 Lymph # (Auto) 1.1 (1.2-3.4) L 02/06/18 06:00 [place] # (Auto) 1.2 (0.1-0.6) H 02/06/18 06:00 Eos # (Auto) 0.2 (0.0-0.7) 02/06/18 06:00 Baso # (Auto) 0.01 K/mm3 (0.0-2.0) 02/06/18 06:00 Neutrophils % (Manual) 54 % (50.0-70.0) 02/06/18 06:00 Lymphocytes % (Manual) 16 % (22.0-35.0) L 02/06/18 06:00 Monocytes % (Manual) 25 % (1.0-6.0) H 02/06/18 06:00 Eosinophils % (Manual) 4 % (0.0-3.0) H 02/06/18 06:00 Basophils % (Manual) 1 % (0.0-1.0) 02/06/18 06:00 Platelet Evaluation Normal (NORMAL) 02/06/18 06:00 Hypochromasia 1+ 02/02/18 18:18 Anisocytosis (manual) 1+ 02/02/18 18:18 Macrocytosis (manual) 1+ 02/02/18 18:18 Sodium 138 mmol/L (132-148) 02/06/18 06:00 Potassium 3.5 mmol/L (3.6-5.0) L 02/06/18 06:00 Chloride 104 mmol/L (98-107) 02/06/18 06:00 Carbon Dioxide 24 mmol/L (21-33) 02/06/18 06:00 Anion Gap 13 (10-20) 02/06/18 06:00 BUN 8 mg/dL (7-21) 02/06/18 06:00 Creatinine 0.7 mg/dl (0.8-1.5) L 02/06/18 06:00 Est GFR ( Amer) > 60 02/06/18 06:00 Est GFR (Non-Af Amer) > 60 02/06/18 06:00 Random Glucose 96 mg/dL (70-110) 02/06/18 06:00 Calcium 9.2 mg/dL (8.4-10.5) 02/06/18 06:00 Phosphorus 3.0 mg/dL (2.5-4.5) 02/06/18 06:00 Magnesium 1.5 mg/dL (1.7-2.2) L 02/06/18 07:00 Total Bilirubin 0.4 mg/dL (0.2-1.3) 02/06/18 06:00 AST 72 U/L (17-59) H D 02/06/18 06:00 ALT 33 U/L (7-56) 02/06/18 06:00 Alkaline Phosphatase 74 U/L (38-126) 02/06/18 06:00 Troponin I 0.02 ng/mL D 02/02/18 20:06 Total Protein 7.2 g/dL (5.8-8.3) 02/06/18 06:00 Albumin 3.7 g/dL (3.0-4.8) 02/06/18 06:00 Globulin 3.5 gm/dL 02/06/18 06:00 Albumin/Globulin Ratio 1.1 (1.1-1.8) 02/06/18 06:00 Stool Occult Blood Negative (NEGATIVE) 02/05/18 10:00 Alcohol, Quantitative < 10 mg/dL (0-10) 02/02/18 18:18 - Hospital Course Hospital Course: Upon Admission Mr. Hiren Cuenca is a 67 year old male with a PMHx of HTN, depression, prostate cancer s/p radiation in 2001, Etoh abuse and withdrawal symptoms including seizures. Patient has a PSHx of lipoma removal from the forehead. Patient is a former smoker, quit in . He presented to [facility] Emergency Room on 02/02/18 for altered mental status likely secondary to ETOH withdrawal associated with generalized tremors. Patient's states he typically drinks about 1/2 pint of vodka each day. Last drink was 2 days prior to admission. In the ED, patient was AAO x2. EKG showed sinus tachycardia 116. During the course of hospital stay patient's mental status resolved. He became AAO x3. He was put on fall, seizure,and aspiration precautions. Patient's electrolytes were monitored and replenished. He was given a banana bag which included thiamine, folate, potassium, and magnesium. Patient was also given Ativan for ETOH withdrawal and seizure prevention. Patient blood pressure was high in the first days of admission requiring hydralazine PRN, but his BP is later controlled by coreg scheduled. Patient had a witnessed fall on 02/04/18. A code star was called. Patient stated he didn't remember the incident clearly and didn't remember why or how he fell. Physical Therapy was consulted to assess ambulation. Physical therapy noted that pt has a steady gait without assistive device. Upon Discharge. Patient was AAOx3. Vital sign stable. His electrolytes were all within normal limits or repleted. . He was given prescription medication at bedside to insure he received coreg, multivitamin, folate, and B12. Patient was referred to Alcoholics Anonymous. Patient is discharged home. Discharge Exam - Additional Findings Additional findings: - Constitutional Appears: No Acute Distress, Cachectic - Head Exam Head Exam: ATRAUMATIC, NORMAL INSPECTION - Eye Exam Eye Exam: EOMI Pupil Exam: PERRL - ENT Exam ENT Exam: Mucous Membranes Moist - Respiratory Exam Respiratory Exam: Clear to Ausculation Bilateral. absent: Accessory Muscle Use, Respiratory Distress - Cardiovascular Exam Cardiovascular Exam: REGULAR RHYTHM, +S1, +S2 - GI/Abdominal Exam GI & Abdominal Exam: Soft, Normal Bowel Sounds, non tender. absent: Guarding, Rigid - Extremities Exam Extremities Exam: Normal Inspection. Minimal tremors appreciated when patient extends his arms. absent: Calf Tenderness - Neurological Exam Neurological Exam: Alert, Awake, Oriented x3 - Skin Skin Exam: Normal Color, Warm Discharge Plan - Discharge Medications Prescriptions: RX: Carvedilol [Coreg] 25 mg PO BID #60 tab RX: Folic Acid 1 mg PO DAILY #30 tab RX: Magnesium Oxide [Mag-Ox] 400 mg PO DAILY #4 tab RX: Multivitamin Therapeutic Tab [Thera Tab] 1 tab PO 0800 #30 tab RX: Thiamine [Vitamin B1 Tab] 100 mg PO DAILY #30 tab - Follow Up Plan Condition: STABLE Disposition: HOME/ ROUTINE Instructions: Hypokalemia (DC), Alcohol Withdrawal (DC), Alcohol Abuse and Alcoholism (DC), Effects of Alcohol on Your Health, Low Magnesium Level (DC) Additional Instructions: Follow up with your primary care doctor, Dr Alarcon, in 3-5 days of discharge. Avoid sudden movement. Exercise fall precautions. Please stop drinking. Your current drinking habit is harmful to your health. Please go to your AA meeting on 4th/Aline and contact your sponsor. New medicine Carvedilol 25mg twice daily multivitamin, folic acid, thiamine B1, magnesium daily Stop clonidine amlodipine metoprolol Please return to emergency department for any new or worsening symptoms. Nursing See care notes for further instructions. Follow up with [facility] for further services and help related to depression with Dr. Alarcon [phone]. Referrals: Alcoholics Anonymous [Outside] - 1 Week Toñito Alarcon MD [Primary Care Provider] - Saeid Figueroa MD [Staff Provider] - <Jose Miguel Dotson - Last Filed: 02/06/18 18:21> Provider - Provider Date of Admission: 02/02/18 20:47 Attending physician: Tenisha Melendez DO Primary care physician: Toñito Alarcon MD Time Spent in preparation of Discharge (in minutes): 20 Hospital Course - Lab Results Lab Results: Most Recent Lab Values WBC 5.5 10^3/uL (4.5-11.0) 02/06/18 06:00 RBC 2.68 10^6/uL (3.5-6.1) L 02/06/18 06:00 Hgb 9.2 g/dL (14.0-18.0) L 02/06/18 06:00 Hct 27.3 % (42.0-52.0) L 02/06/18 06:00 MCV 101.9 fl (80.0-105.0) 02/06/18 06:00 MCH 34.3 pg (25.0-35.0) 02/06/18 06:00 MCHC 33.7 g/dl (31.0-37.0) 02/06/18 06:00 RDW 15.0 % (11.5-14.5) H 02/06/18 06:00 Plt Count 217 10^3/uL (120.0-450.0) 02/06/18 06:00 MPV 10.6 fl (7.0-11.0) 02/06/18 06:00 Gran % 54.9 % (50.0-68.0) 02/06/18 06:00 Lymph % (Auto) 19.9 % (22.0-35.0) L 02/06/18 06:00 [place] % (Auto) 22.1 % (1.0-6.0) H 02/06/18 06:00 Eos % (Auto) 2.9 % (1.5-5.0) 02/06/18 06:00 Baso % (Auto) 0.2 % (0.0-3.0) 02/06/18 06:00 Gran # 3.03 (1.4-6.5) 02/06/18 06:00 Lymph # (Auto) 1.1 (1.2-3.4) L 02/06/18 06:00 [place] # (Auto) 1.2 (0.1-0.6) H 02/06/18 06:00 Eos # (Auto) 0.2 (0.0-0.7) 02/06/18 06:00 Baso # (Auto) 0.01 K/mm3 (0.0-2.0) 02/06/18 06:00 Neutrophils % (Manual) 54 % (50.0-70.0) 02/06/18 06:00 Lymphocytes % (Manual) 16 % (22.0-35.0) L 02/06/18 06:00 Monocytes % (Manual) 25 % (1.0-6.0) H 02/06/18 06:00 Eosinophils % (Manual) 4 % (0.0-3.0) H 02/06/18 06:00 Basophils % (Manual) 1 % (0.0-1.0) 02/06/18 06:00 Platelet Evaluation Normal (NORMAL) 02/06/18 06:00 Hypochromasia 1+ 02/02/18 18:18 Anisocytosis (manual) 1+ 02/02/18 18:18 Macrocytosis (manual) 1+ 02/02/18 18:18 Sodium 138 mmol/L (132-148) 02/06/18 06:00 Potassium 3.5 mmol/L (3.6-5.0) L 02/06/18 06:00 Chloride 104 mmol/L (98-107) 02/06/18 06:00 Carbon Dioxide 24 mmol/L (21-33) 02/06/18 06:00 Anion Gap 13 (10-20) 02/06/18 06:00 BUN 8 mg/dL (7-21) 02/06/18 06:00 Creatinine 0.7 mg/dl (0.8-1.5) L 02/06/18 06:00 Est GFR ( Amer) > 60 11/12/18 06:00 Est GFR (Non-Af Amer) > 60 02/06/18 06:00 Random Glucose 96 mg/dL (70-110) 02/06/18 06:00 Calcium 9.2 mg/dL (8.4-10.5) 02/06/18 06:00 Phosphorus 3.0 mg/dL (2.5-4.5) 02/06/18 06:00 Magnesium 1.5 mg/dL (1.7-2.2) L 02/06/18 07:00 Total Bilirubin 0.4 mg/dL (0.2-1.3) 02/06/18 06:00 AST 72 U/L (17-59) H D 02/06/18 06:00 ALT 33 U/L (7-56) 02/06/18 06:00 Alkaline Phosphatase 74 U/L (38-126) 02/06/18 06:00 Troponin I 0.02 ng/mL D 02/02/18 20:06 Total Protein 7.2 g/dL (5.8-8.3) 02/06/18 06:00 Albumin 3.7 g/dL (3.0-4.8) 02/06/18 06:00 Globulin 3.5 gm/dL 02/06/18 06:00 Albumin/Globulin Ratio 1.1 (1.1-1.8) 02/06/18 06:00 Stool Occult Blood Negative (NEGATIVE) 02/05/18 10:00 Alcohol, Quantitative < 10 mg/dL (0-10) 02/02/18 18:18 Attending/Attestation - Attestation I have personally seen and examined this patient.: Yes I have fully participated in the care of the patient.: Yes I have reviewed all pertinent clinical information, including history, physical exam and plan: Yes
== END 2018-02-06 19:02 | disposition home or self-care (01) | DRG 897 ==
LOC: ED 17:40 → ERH 20:47 → 2RNO 23:16
PROVIDERS: ADMIT Hospitalist; ATTEND Hospitalist
DX: F10.239 Alcohol dependence with withdrawal, unspecified (principal); I10 Essential (primary) hypertension; E83.42 Hypomagnesemia; F32.9 Major depressive disorder, single episode, unspecified; R11.2 Nausea with vomiting, unspecified; E87.6 Hypokalemia; R19.7 Diarrhea, unspecified; Z85.46 Personal history of malignant neoplasm of prostate; Z87.891 Personal history of nicotine dependence; Z92.3 Personal history of irradiation